=== PATIENT | female | born 1950 | race Caucasian/White ===

== ENCOUNTER 2017-02-12 18:05 | Inpatient (IN) | payer MEDICARE ==
--- NOTE | ~2017-02-12 | HP ---
Unit #: [id number] #: [id number] Patient: ANJELICA ISAAC [id number] [facility] [address] [facility] [place], [place] [address] [id number] I MR#: [id number] NAME: ANJELICA ISAAC ROOM: 47 Age: 66 Sex: F Admission Date: 02/12/2017 : 1950 Attending Physician: Lionel Andrews M.D. Primary Care Physician: Jessica Adrian M.D. HISTORY AND PHYSICAL CHIEF COMPLAINT Right knee injury. HISTORY OF PRESENT ILLNESS Ms. Isaac is a 66-year-old female, a patient of my partner, Dr. Andrews, who has had multiple right lower extremity surgeries. The patient reports that she fell at home, landing directly on her right knee. The legs essentially gave out on her. She denied any loss of consciousness or other associated symptoms. No dizziness or headache or chest pain. She noted pain in the knee. She was seen at an outside facility, where x-rays were taken. She was noted to have a distal femur fracture. She was transferred to Dr. Andrews at [facility] for further care. The patient notes pain with motion. It is better with rest. She describes a dull ache. Prior to the injury, the knee was doing well. She does have a history of wound infections in this extremity. PAST MEDICAL HISTORY 1. Degenerative joint disease. 2. History of MRSA infection. 3. Osteoarthritis. 4. Depression. 5. Hypertension. PAST SURGICAL HISTORY 1. Spinal fusion. 2. Multiple incisions and drainage of the right lower extremity. 3. Right hip replacement. 4. Right knee replacement. 5. Left knee replacement. SOCIAL HISTORY The patient is . She lives in [place]. Denies smoking, alcohol or drugs. FAMILY HISTORY Noncontributory. ALLERGIES Sulfa and fentanyl patch. HOME MEDICATIONS Reviewed and include Percocet 10/325 mg. REVIEW OF SYSTEMS Unit #: [id number] #: [id number] Patient: ANJELICA ISAAC No new pertinent positives or negatives noted other than what is mentioned in the history of present illness. PHYSICAL EXAMINATION GENERAL: This patient is alert and oriented for examination. No acute distress. VITALS: Temperature 98.1 degrees Fahrenheit, pulse 65, respiratory rate 18, blood pressure 110/58. HEENT: Head is atraumatic, normocephalic. Extraocular movements intact. Mucous membranes moist. NECK: Cervical spine midline. No jugular venous distension. Breathing nonlabored. Chest rises symmetric. CHEST: Breathing nonlabored. Chest rises symmetric. HEART: Pulse regular rate and rhythm. ABDOMEN: Soft, nontender and nondistended. She is obese. EXTREMITIES: No clubbing, cyanosis or edema. All extremities are warm and well perfused. FOCUSED ORTHOPEDIC: The right lower extremity reveals knee extended with knee immobilizer in place. Foot is warm and well perfused. She can flex and extend her foot without difficulty. No appreciable skin lesions. Mild swelling about the knee. Mild tenderness to palpation about the distal femur. DIAGNOSTIC STUDIES IMAGING: X-rays ordered and reviewed of the right femur and knee. There is minimally displaced distal femur fracture just proximal to the knee implant. This is a predominantly transverse fracture. CT scan of the right knee reviewed as well. Again, minimally displaced distal femur fracture just above the implant. LABORATORY: None. ASSESSMENT The patient is a 66-year-old female with a periprosthetic super condylar femur fracture that is minimally displaced. PLAN The x-rays have been reviewed. The patient has a minimally displaced fracture. I would favor treating this nonoperatively with her medical history. This would be a difficult place to achieve any purchase with plate and screws. I will defer further care to my partner, Dr. Andrews. We will plan on possibly taking her to the operating room for casting versus ORIF after further discussion. All of the patient's questions were answered today. Further recommendations will follow. Dictated by Geo Wilson/pelon TD: 02/14/2017 06:13 JOB #: [id number] CC: Lionel Andrews M.D. Unit #: [id number] #: [id number] Patient: ANJELICA ISAAC HISTORY AND PHYSICAL Page 1 of 1 X X HISTORY AND PHYSICAL
--- NOTE | ~2017-02-12 | DS ---
Unit #: [id number] #: [id number] Patient: ANJELICA MEJIA [id number] [address] [address] [id number] I MR#: [id number] NAME: ANJELICA MEJIA ROOM: 476 Age: 66 Sex: F Admission Date: 02/12/2017 : 1950 Discharge Date: 02/18/2017 Attending Physician: Lionel Andrews M.D. Primary Care Physician: Jessica Adrian M.D. DISCHARGE SUMMARY Date of discharge is 02/18/2017 pending approval for rehab placement in [facility]. HOSPITAL COURSE This is a 66-year-old lady who sustained a fall and a periprosthetic supracondylar comminuted femur fracture. She has a long-stem total hip on the same side and because of this and the about of comminution of the fracture was unable to be fixed surgically. She was taken to the operating room where she underwent closed reduction and application of a long leg cast. This will need to be in place probably six to eight weeks. She is to remain toe touch weight bearing. She is to be discharged to rehab and followed up in the office in ten days to two weeks for an x-ray. DISCHARGE MEDICATIONS She is on Lovenox for DVT prophylaxis and Percocet for pain and we will renew the rest of her routine home medications. CONDITION ON DISCHARGE Improved. DISPOSITION Will be to rehab in [facility] pending insurance approval today. Dictated by... Geo Shay/tiarra TD: 02/18/2017 08:36 JOB #: [id number] Unit #: [id number] #: [id number] Patient: ANJELICA MEJIA DISCHARGE SUMMARY Page 1 of 1 X Lionel Andrews MD X DISCHARGE SUMMARY
--- NOTE | ~2017-02-12 | CR170 ---
[facility] A Service of [facility] RADIOLOGY TEXT RESULTS PATIENT: ANJELICA MEJIA LOCATION: [place] [address]- : [birth year] UNIT #: [id number] AGE: [address]: Lionel Andrews MD SEX: F ORDER DR: [id number] [facility] [address] [facility]. [place], [place] [address] [id number] I MR#: [id number] Acc #: [id number] NAME: ANJELICA MEJIA : 1950 SEX: F STUDY DATE/TIME: 02/13/2017 10:18 UNIT: [facility] ROOM: [facility] STUDY DESCRIPTION: CR Knee 2 Views Rt Attending Physician: Lionel Andrews M.D. Ordering Physician: Dez Haines M.D. Primary Care Physician: Jessica Adrian M.D. MEDICAL IMAGING REPORT This report is preliminary unless electronic signature is present EXAM Right knee series dated 02/13/2017. COMPARISON Right femur series dated 02/13/2017 at 1020 hours. They were obtained at the same time. HISTORY Pain in the right leg post fall 3 days ago. FINDINGS 2 views of the right knee were obtained. Status post total right knee arthroplasty with prosthesis. Prosthesis is intact, however, there is a predominantly horizontal, minimally displaced fracture of the distal [place] femoral bone adjacent to the prosthesis. Mild comminution cannot be excluded. There are multiple round and oval opacities noted in the soft tissues of the visualized mid and lower leg suggestive of dystrophic calcifications, benign-appearing. There is also a femoral shaft prosthesis which extends from the right femoral head when read in conjunction with the right femur series. Refer to it. Dictated by... Chan Gonzalez M.D. THIS IS AN ELECTRONICALLY VERIFIED REPORT Chan Gonzalez M.D. at 02/15/2017 1:51 PM CPR/tmw TD: 02/13/2017 15:28 JOB #: [id number] [facility] A Service of [facility] RADIOLOGY TEXT RESULTS PATIENT: ANJELICA MEJIA LOCATION: [facility] 476-01 : [birth year] UNIT #: [id number] AGE: [address]: Lionel Andrews MD SEX: F ORDER DR: MEDICAL IMAGING REPORT Page 1 of 1 COPY
--- NOTE | ~2017-02-12 | OR ---
Unit #: [id number] #: [id number] Patient: ANJELICA MEJIA [id number] [address] [place], [place] [address] [id number] I MR#: [id number] NAME: ANJELICA MEJIA ROOM: 476 Date of Procedure: 02/15/2017 Admission Date: 02/12/2017 Surgeon: Lionel Andrews M.D. : 1950 Attending Physician: Lionel Andrews M.D. Primary Care Physician: Jessica Adrian M.D. OPERATIVE REPORT PREOPERATIVE DIAGNOSIS Periprosthetic distal femur fracture. POSTOPERATIVE DIAGNOSIS Periprosthetic distal femur fracture. PROCEDURE PERFORMED Application of long leg cast. DESCRIPTION OF PROCEDURE The patient was brought to the operating room, given a general anesthetic. We then positioned a long leg cast leaving the foot and ankle out. The C-arm showed appropriate reduction of the fracture. There was very comminuted fracture to position a lateral condylar plate, so she had a long stem femoral component from the total hip. The patient's general anesthetic was reversed after the reduction was confirmed and then she was transferred to the recovery room. Dictated by... Geo Shay/narciso TD: 02/16/2017 03:08 JOB #: [id number] OPERATIVE REPORT Page 1 of 1 X Lionel Andrews MD X PROCEDURE OPERATIVE NOTE
--- NOTE | ~2017-02-12 | CT95 ---
[facility] A Service of [facility] RADIOLOGY TEXT RESULTS PATIENT: ANJELICA MEJIA LOCATION: [facility] 476-01 : [birth year] UNIT #: [id number] AGE: [address]: Lionel Andrews MD SEX: F ORDER DR: [id number] [facility] [address] [facility]. [place], [place] [address] [id number] I MR#: [id number] Acc #: [id number] NAME: ANJELICA MEJIA : 1950 SEX: F STUDY DATE/TIME: 02/13/2017 9:49 UNIT: [facility] ROOM: [facility] STUDY DESCRIPTION: CT Lower Ext Rt Wo Cont Attending Physician: Lionel Andrews M.D. Ordering Physician: Dez Haines M.D. Primary Care Physician: Jessica Adrian M.D. MEDICAL IMAGING REPORT This report is preliminary unless electronic signature is present EXAM CT right knee without contrast. DATE OF EXAM 02/13/2017 HISTORY Right knee fracture. Fell 2 days ago. Abnormal knee x-ray earlier today. TECHNIQUE NOTE: This CT exam was performed with one or more of the following radiation dose reduction techniques: automatic exposure control, adjustment of mA and/or kV according to patient size, and iterative reconstruction. FINDINGS CT right knee without contrast is compared to knee x-ray earlier today. Streak artifact from the knee prosthesis limits sensitivity. A comminuted transverse fracture is identified extending through the supracondylar distal femur, better demonstrated on the knee x-ray today. Small comminuted fracture fragments along the posterior fracture line measure up to approximately 5 mm and are displaced less than 5 mm. Generalized demineralization. There is also an old healed fracture deformity distal femoral metaphysis. IMPRESSION 1. Transverse supracondylar fracture distal femur corresponds to the finding on knee x-ray earlier today. Small comminuted fracture fragments measuring up to approximately 5 mm are noted along the posterior fracture line and are displaced less than 5 mm. 2. Bone detail is quite limited due to streak artifact from the knee prosthesis. [facility] A Service of [facility] RADIOLOGY TEXT RESULTS PATIENT: ANJELICA MEJIA LOCATION: [facility] 476-01 : [birth year] UNIT #: [id number] AGE: [address]: Lionel Andrews MD SEX: F ORDER DR: 3. Generalized demineralization. Dictated by... Kurtis Caban M.D. THIS IS AN ELECTRONICALLY VERIFIED REPORT Kurtis Caban M.D. at 02/13/2017 11:26 PM ALVINO/kelvin TD: 02/13/2017 22:54 JOB #: [id number] MEDICAL IMAGING REPORT Page 1 of 1 COPY
--- NOTE | ~2017-02-12 | CR107 ---
[facility] A Service of [facility] RADIOLOGY TEXT RESULTS PATIENT: ANJELICA MEJIA LOCATION: [place] [address]- : [birth year] UNIT #: [id number] AGE: [address]: Lionel Andrews MD SEX: F ORDER DR: [id number] [facility] [address] [facility]. [place], [place] [address] [id number] I MR#: [id number] Acc #: [id number] NAME: ANJELICA MEJIA : 1950 SEX: F STUDY DATE/TIME: 02/13/2017 10:20 UNIT: [facility] ROOM: [facility] STUDY DESCRIPTION: CR Femur 2 Views Rt Attending Physician: Lionel Andrews M.D. Ordering Physician: Dez Haines M.D. Primary Care Physician: Jessica Adrian M.D. MEDICAL IMAGING REPORT This report is preliminary unless electronic signature is present REVISED REPORT SEE ADDENDUM EXAM Right femur series dated 02/13/2017. COMPARISON Right knee series dated 02/13/2017. HISTORY Right knee and hip replacement in 2003. Pain in the right leg post fall 3 days ago. FINDINGS 6 images of 2 views of the right knee were obtained. There is a slightly comminuted, predominantly horizontal fracture of the distal femur adjacent to the prosthesis of the right knee joint. It is minimally displaced if any. There is diffuse bony osteopenia. Right femoral prosthesis is noted extending from the femoral head down to the distal shaft with bony undulated cortical border relating to an old healed fracture. There is diffuse bony osteopenia. Total right knee arthroplasty is noted with intact prosthesis. No dislocation is seen. Attempts are made to contact Dr. Dez Haines at 11:00 a.m. on 02/13/2017. Dictated by.Ermelinda. Chan Gonzalez M.D. THIS IS AN ELECTRONICALLY VERIFIED REPORT Chan Gonzalez M.D. at 02/15/2017 1:47 PM [facility] A Service of [facility] RADIOLOGY TEXT RESULTS PATIENT: ANJELICA MEJIA LOCATION: [facility] 476-01 : [birth year] UNIT #: [id number] AGE: [address]: Lionel Andrews MD SEX: F ORDER DR: HANNAH/tmw TD: 02/13/2017 13:36 JOB #: [id number] ADDENDUM EXAM Right knee series dated 02/13/2017. ADDENDUM There are multiple round and oval opacities noted in and around the right femur and adjacent soft tissues. They could represent postoperative change, dystrophic calcification and/or antibiotic beads in this region depending on the clinical history. Findings were discussed with Emile, the nurse taking care of the patient, at 11:20 a.m. on 02/13/2017. I was unable to get hold of the doctor. Dictated by... Chan Gonzalez M.D. THIS IS AN ELECTRONICALLY VERIFIED REPORT Chan Gonzalez M.D. at 02/18/2017 8:30 AM CPR/pc TD: 02/13/2017 13:45 JOB #: [id number] CC: Chriss/alban Please Delete MEDICAL IMAGING REPORT Page 1 of 1 COPY
[~2017-02-12 18:05] MED LIST: CALCIUM + D 6001 TA1 PO; CALCIUM 600 +1 EAC2 PO; COUMADIN10 MG PO; DISCONTINUED MED; FLEXERIL PO; FLEXERIL10 MG PO; HYDROCODONE-APA1 T33 PO; KADIAN30 MG PO; LASIX PO; LEXAPRO PO; LIDODERM30 EA TOP; MACROBID 100 M100 MG PO; MAXZIDE 75/50 T1 TA1 PO; MILK OF MAGNESIA PO; NEURONTIN PO; NEURONTIN300 MG PO; PAXIL10 MG PO; PERCOCET 10/3251 TAB PO; SEROQUEL50 MG PO; THERAPEUTIC; THERAPEUTIC M PO; VITAMIN D-3 4001 TAB PO; VITAMIN D1000 UNIT PO; VITAMIN D400 UNI1 PO; VOLTAREN75 MG PO; ZOLPIDEM TARTRAT5 MG PO
[2017-02-13] MEDS ORDERED: VOLTAREN75 MG PO (02:04)
[2017-02-14 05:05] LABS: BASOPHIL% 0.7 % (0-2.5); EOSINOPHIL# 0.2 X10e3 (0-0.7); HEMATOCRIT 27.2 % (35.0-45.0); HEMOGLOBIN 8.5 gm/dL (12.0-16.0); LYMPHOCYTE# 0.8 X10e3 (1.0-3.5); LYMPHOCYTE% 19.3 % (17.0-45.0); MEAN CORPUSCULAR HEMOGLOBIN 25.5 PG (28-34); MEAN CORPUSCULAR HGB CONC 31.1 g/dL (30-36); MEAN PLATELET VOLUME 10.7 FL (6.5-11.5); MONOCYTE# 0.4 X10e3 (0-1.0); MONOCYTE% 9.8 % (3.0-12.0); NEUTROPHIL# 2.6 X10e3 (1.5-7.1); NEUTROPHIL% 65.2 % (40-75); PLATELET COUNT 100 X10e3 (140-420); RED BLOOD COUNT 3.32 X10e (3.90-5.30); RED CELL DISTRIBUTION WIDTH 18.9 % (11.0-15.5)
[2017-02-14 05:13] LABS: PROTHROMBIN TIME (PATIENT) 10.7 SECONDS (9.6-11.5)
[2017-02-14 05:15] LABS: DIFF IND NO
[2017-02-14 06:25] LABS: CALCIUM SERUM 9.3 mg/dL (8.4-10.2); CREATININE SERUM 0.6 mg/dL (0.6-1.4); GLOM FILT RATE Estimated 95.7 mL/min (>60); POTASSIUM 3.8 mmol/L (3.5-5.1)
[2017-02-15 02:31] LABS: BASOPHIL% 1.2 % (0-2.5); EOSINOPHIL# 0.2 X10e3 (0-0.7); EOSINOPHIL% 4.7 % (0.0-7.0); HEMATOCRIT 25.7 % (35.0-45.0); LYMPHOCYTE# 0.7 X10e3 (1.0-3.5); LYMPHOCYTE% 21.7 % (17.0-45.0); MEAN CELL VOLUME 81.7 FL (83-96); MEAN CORPUSCULAR HEMOGLOBIN 25.4 PG (28-34); MEAN CORPUSCULAR HGB CONC 31.1 g/dL (30-36); MONOCYTE# 0.4 X10e3 (0-1.0); MONOCYTE% 12.4 % (3.0-12.0); NEUTROPHIL# 1.9 X10e3 (1.5-7.1); RED BLOOD COUNT 3.15 X10e (3.90-5.30); RED CELL DISTRIBUTION WIDTH 18.5 % (11.0-15.5); WHITE BLOOD COUNT 3.2 X10e3 (4.0-10.5)
[2017-02-15 02:53] LABS: DIFF IND YES; PLATELET COUNT 89 X10e3 (140-420)
[2017-02-15 02:57] LABS: PLATELET ESTIMATE DECREASED (NORMAL)
[2017-02-15 02:58] LABS: ANISOCYTOSIS MOD; OVALOCYTES PRESENT
[2017-02-16 03:06] LABS: HEMOGLOBIN 7.8 gm/dL (12.0-16.0)
[2017-02-17 03:42] LABS: HEMATOCRIT 24.6 % (35.0-45.0); HEMOGLOBIN 7.7 gm/dL (12.0-16.0)
[2017-02-18 03:44] LABS: HEMATOCRIT 25.2 % (35.0-45.0)
[2017-06-07] MEDS ORDERED: LASIX20 MG PO (01:49)
[2017-06-07] MEDS ORDERED: VIBRAMYCIN100 M1 PO (01:59)
[2017-06-07] MEDS ORDERED: PAROXETINE HCL20 M1 PO (02:00)
[2017-06-07] MEDS ORDERED: TRIAMTERENE-HC1 EAC1 PO (02:03)
[2017-06-07] MEDS ORDERED: GABAPENTIN600 MG PO (02:05)
[2017-06-07] MEDS ORDERED: PERCOCET10 PO (02:06)
[2017-06-07] MEDS ORDERED: FLEXERIL10 MG PO (02:07)
[2017-06-07] MEDS ORDERED: VITAMIN D-32000 UNIT PO (02:16)
[2017-06-07] MEDS ORDERED: CALCIUM 600-VI1 EACH PO (02:19)
[2017-06-07] MEDS ORDERED: GAS RELIEF125 MG PO (02:20)
[2017-06-07] MEDS ORDERED: MULTI-DAY VITA1 EACH PO (02:20)
[2017-06-07] MEDS ORDERED: WOMEN'S LAXATIVE5 M2 PO (02:32)
== END 2017-02-18 17:31 | DRG 534 ==
LOC: C4C 18:05
PROVIDERS: Orthopaedic Surgery
PROC: 0QSBXZZ Reposition Right Lower Femur, External Approach (ICD-10-PCS; principal; 2017-02-15 11:00)
DX: S72.451A Displaced supracondylar fracture without intracondylar extension of lower end of right femur, initial encounter for closed fracture (principal); M97.01XA Periprosthetic fracture around internal prosthetic right hip joint, initial encounter; I10 Essential (primary) hypertension; W18.30XA Fall on same level, unspecified, initial encounter; Z91.81 History of falling; Y92.009 Unspecified place in unspecified non-institutional (private) residence as the place of occurrence of the external cause; M19.90 Unspecified osteoarthritis, unspecified site; Z79.899 Other long term (current) drug therapy
CPT/HCPCS: 73552; 73560; 73700; 76000; 80048; 85014; 85018; 85025; 85610; 94760; 97110; 97163; 97167; 97530; 97535; G8978-GP; G8979-GP; G8987-GO; G8988-GO; J1170; J1650; J3010

== ENCOUNTER 2017-06-07 12:27 | Day surgery (SDC) | payer MEDICARE, OTHER ==
--- NOTE | ~2017-06-07 | EKG ---
PATIENT: ANJELICA MEJIA UNIT #: [id number] Ventricular Rate: 69 BPM Atrial Rate: 69 BPM P-R Interval: 160 ms QRS Duration: 86 ms Q-T Interval: 372 ms QTC Calculation(Bezet): 398 ms P [place]: 15 degrees Calculated T [place]: -2 degrees Diagnosis Line: Normal sinus rhythm Diagnosis Line: Moderate voltage criteria for LVH, may be normal Diagnosis Line: variant Diagnosis Line: Inferior infarct , age undetermined Diagnosis Line: Abnormal ECG Diagnosis Line: When compared with ECG of 24-NOV-2010 18:52, Diagnosis Line: Inferior infarct is now Present Diagnosis Line: T wave inversion now evident in Inferior leads Diagnosis Line: Confirmed by KING POWELL MD ([id number]) on Diagnosis Line: 06/07/2017 1:30:14 PM INTERPRETING MD: ANDRE SKY
--- NOTE | ~2017-06-07 | OR ---
Unit #: [id number] #: [id number] Patient: ANJELICA MEJIA [id number] [address] [address] [id number] I MR#: [id number] NAME: ANJELICA MEJIA ROOM: Date of Procedure: 06/07/2017 Admission Date: 06/07/2017 Surgeon: Lionel Andrews M.D. : 1950 Attending Physician: Lionel Andrews M.D. Primary Care Physician: Jessica Adrian M.D. OPERATIVE REPORT PREOPERATIVE DIAGNOSES Wound dehiscence and skin necrosis, anterior lateral thigh wound, right leg, superficial. POSTOPERATIVE DIAGNOSES Wound dehiscence and skin necrosis, anterior lateral thigh wound, right leg, superficial. PROCEDURE PERFORMED Debridement, irrigation, and culture of the wound with closure of the Hemovac drain. DESCRIPTION OF PROCEDURE The patient was brought to the operating room, given IV vancomycin 2 g, brought back to the operating room, given a general anesthetic. The right leg was prepped and draped. The eschar was debrided. The edges of the wound were debrided including the base which did not appear to go deep. The wound was extended proximally and there was a pocket of fluid, did not appear purulent. This was cultured and then the pocket was debrided and curetted. Hemostasis was obtained. The drain was positioned. We then closed the subcutaneous with 0 Vicryl interrupted sutures and the skin was approximated with 2-0 nylon. The drain was positioned prior to closure and brought out through a separate stab wound. She then had sterile dressing applied and a general anesthetic reversed. Dictated by... Geo Shay/narciso TD: 06/07/2017 23:46 JOB #: [id number] Unit #: [id number] #: [id number] Patient: ANJELICA MEJIA OPERATIVE REPORT Page 1 of 1 X Lionel Andrews MD PROCEDURE OPERATIVE NOTE
[~2017-06-07 12:27] MED LIST changes: +CALCIUM 600-VI1 EACH PO; +GABAPENTIN600 MG PO; +GAS RELIEF125 MG PO; +LASIX20 MG PO; +MULTI-DAY VITA1 EACH PO; +PAROXETINE HCL20 M1 PO; +PERCOCET10 PO; +TRIAMTERENE-HC1 EAC1 PO; +VIBRAMYCIN100 M1 PO; +VITAMIN D-32000 UNIT PO; +WOMEN'S LAXATIVE5 M2 PO
[2017-06-07] MEDS ORDERED: CIPRO PO (12:55)
[2017-06-07] MEDS ORDERED: ARIPIPRAZOLE2 MG PO (12:55)
[2017-06-07] MEDS ORDERED: ROCEPHIN IM (12:57)
[2017-06-07] MEDS ORDERED: FERROUS SULFAT325 MG PO (12:57)
[2017-06-07 14:39] LABS: CALCIUM SERUM 9.7 mg/dL (8.4-10.2); CREATININE SERUM 0.5 mg/dL (0.6-1.4); GLOM FILT RATE Estimated 100.9 mL/min (>60); POTASSIUM 3.8 mmol/L (3.5-5.1)
[2017-06-07] MEDS ORDERED: KCL PO (18:07)
== END 2017-06-07 19:31 ==
LOC: CSUR 12:27 → CPACUOF 12:54 → CSUR 14:00
PROVIDERS: Orthopaedic Surgery
DX: T84.51XD Infection and inflammatory reaction due to internal right hip prosthesis, subsequent encounter (principal); I10 Essential (primary) hypertension; E66.01 Morbid (severe) obesity due to excess calories; M19.90 Unspecified osteoarthritis, unspecified site; F32.9 Major depressive disorder, single episode, unspecified; Z68.36 Body mass index [BMI] 36.0-36.9, adult; Z87.01 Personal history of pneumonia (recurrent); Z88.2 Allergy status to sulfonamides; Z88.8 Allergy status to other drugs, medicaments and biological substances; Z79.82 Long term (current) use of aspirin; Z79.899 Other long term (current) drug therapy; Z96.641 Presence of right artificial hip joint
CPT/HCPCS: 80048; 87070; 87075; 87205; 93005; J1100; J2250; J3010; J3370; J3490